=== PATIENT | female | born 1955 | race Caucasian/White ===

== ENCOUNTER → 2017-07-14 | Outpatient (CLI) | payer OTHER | LOC: FIMAGING 07:30 | PROVIDERS: ATTEND Internal Medicine | DX: R10.11 Right upper quadrant pain (principal); R93.2 Abnormal findings on diagnostic imaging of liver and biliary tract ==

== ENCOUNTER → 2017-07-22 | Outpatient (CLI) | payer OTHER ==
[~2017-07-22] MED LIST: GADOBUTROL 10 ML VIAL IVP ONE
== END ==
LOC: FIMAGING 07:04
PROVIDERS: ATTEND Internal Medicine
DX: R10.9 Unspecified abdominal pain (principal); R93.2 Abnormal findings on diagnostic imaging of liver and biliary tract; R93.3 Abnormal findings on diagnostic imaging of other parts of digestive tract; K76.89 Other specified diseases of liver
CPT/HCPCS: A9585

== ENCOUNTER 2017-09-20 20:23 | Emergency (ER) | payer OTHER ==
[2017-09-20 20:36] VITALS: TEMP 98.8
--- NOTE | 2017-09-20 21:32 | EDPHY ---
H & P Smoking Status: Never smoked Time Seen by Provider: 09/20/17 21:29 HPI/ROS: Chief complaint. Back pain HPI. 61-year-old female with 3 day history back pain. 3 days ago she was [place] and had a hard landing. She hurt her back. It has been sore over the last couple days. She had increased pain and spasms today. She saw her physician this afternoon who ordered outpatient x-rays. My review of the x- rays show T12 compression fracture that is moderate but age indeterminate and then another compression fracture this minor of L3. She does have a history of low back pain but there were no previous x-rays apparently for comparison so the acuity is not known. She has no radiation to legs. No bowel or bladder symptoms. Increased pain with movement ROS Constitutional. no fever/chills, no weakness Eyes. no problems with vision ENT. no sore throat, no nasal drainage Cardiovascular. no chest pain Respiratory. no shortness of breath, no cough Abdominal. no abdominal pain, no nausea/vomiting, no diarrhea . no problems urinating MS. Low mid back pain Skin. no rash Lymph. no swollen glands Neuro. no headache, no dizziness, no difficulty walking or with speech (Kun Villagran) Past Medical/Surgical History: Past medical history is significant for hypertension, dyslipidemia, hypothyroid (Kun Villagran) Social History: , nonsmoker, no alcohol (Kun Villagran) Physical Exam: General Appearance: Alert well-developed female moderate distress vital signs are stable Eyes: Pupils equal and round no pallor or injection. ENT, Mouth: Mucous membranes are moist. Respiratory: There are no retractions, lungs are clear to auscultation. Cardiovascular: Regular rate and rhythm. Gastrointestinal: Abdomen is soft and nontender, no masses, bowel sounds normal. Neurological: Awake and alert, sensory and motor exams grossly normal. Skin: Warm and dry, no rashes. Musculoskeletal: Neck is supple nontender. Patient is tender over T12 and through the lumbar spine. No surface swelling or trauma Extremities symmetrical, full range of motion. Psychiatric: Patient is oriented X 3, there is no agitation. (Kun Villagran) Constitutional: Initial Vital Signs Temperature (C) 37.1 C 09/20/17 20:33 Heart Rate 93 09/20/17 20:33 Respiratory Rate 18 09/20/17 20:33 Blood Pressure 143/75 H 09/20/17 20:33 O2 Sat (%) 96 09/20/17 20:33 O2 Delivery Mode Nasal Cannula O2 (L/minute) 3 Allergies/Adverse Reactions: No Known Allergies Allergy (Verified 05/18/16 14:41) Home Medications: Medication Instructions Recorded Levothyroxine [Synthroid 137 mcg 137 mcg PO DAILY06 04/30/13 (*)] Losartan/Hctz 50/12.5 [Hyzaar 1 tab PO DAILY 04/30/13 50/12.5MG (*)] Rosuvastatin Calcium [Crestor] 10 mg PO DAILY 04/30/13 Amlodipine Besylate [Norvasc] 5 mg PO DAILY 05/08/16 Multivitamins [Multivitamin (*)] 1 each PO DAILY 05/08/16 [place]-3 Fatty Acids [Fish Oil 1000 1,000 mg PO DAILY 05/08/16 mg (*)] Acetaminophen [Tylenol 325mg (*)] 650 mg PO Q6HRS #0 tab 05/30/16 Aspirin [Aspirin 325 mg (*)] 325 mg PO DAILY #0 tab 05/30/16 Sennosides/Docusate Sodium 1 - 2 tab PO BID #0 tab 05/30/16 [Senokot-S] celeCOXIB [Celebrex (*)] 200 mg PO DAILY #20 cap 05/30/16 oxyCODONE IR [Oxycodone Ir (*)] 5 - 10 mg PO Q3HRS PRN #0 tab 05/30/16 Diazepam [Valium] 5 mg PO Q6PRN PRN #10 tab 09/20/17 oxyCODONE/APAP 5/325 [Percocet 1 tab PO Q4-6PRN PRN #14 tab 09/20/17 5/325] Medical Decision Making - Diagnostics Imaging Results: Imaging Impressions Lumbar Spine CT 09/20/17 21:55 Impression: 1. Mild acute compression fracture of the superior endplate of the T12 vertebral body. 2. Degenerative disk disease at L1-L2 and L5-S1. Results called to Dr. Mina at 11:15 PM. Review of plain x-rays from earlier today showing moderate compression fracture of T12 and minor compression fracture of L3 (Kun Villagran) Procedures: IV normal saline. Dilaudid for pain. Zofran for nausea. Valium for muscle relaxation (Kun Villagran) ED Course/Re-evaluation: Re-evaluation Patient is feeling better. [place] brace is ordered for indication of T12 and L3 compression fracture ( Kun Villagran) 2322: Patient was signed over to me at 11:00 p.m. Shift change to follow up the CT scan of the lumbar spine. The CT scan of the lumbar spine shows an acute T12 compression fracture approximately 15% height loss. Stable. This is called to me by Dr. Toledo. I have updated the patient about these findings. I have ordered a [place] brace. Patient will get to go home. Follow up with Neurosurgery on outpatient basis. She is comfortable this plan. (Michael Ann) Differential Diagnosis: I considered acute fracture versus exacerbation of chronic fractures as the initial x-ray showed age indeterminate. However the patient has had recent trauma and these are likely could acute fractures. She is neurologically intact. No evidence for cord compression or cauda equina syndrome. (Kun Villagran) Care Turn Over: Dr. Mina at 2200 (Kun Villagran) - Data Points Medications Given: Discontinued Medications Diazepam (Valium) 5 mg IVP EDNOW ONE Stop: 09/20/17 21:57 Last Admin: 09/20/17 22:38 Dose: 5 mg Hydromorphone HCl (Dilaudid) 0.5 mg IVP EDNOW ONE Stop: 09/20/17 21:56 Last Admin: 09/20/17 22:18 Dose: 0.5 mg Ondansetron HCl (Zofran) 4 mg IVP EDNOW ONE Stop: 09/20/17 21:56 Last Admin: 09/20/17 22:07 Dose: 4 mg Departure - Departure Disposition: Home, Routine, Self-Care Clinical Impression: Compression fracture of vertebral column Qualifiers: Encounter type: initial encounter Qualified Code(s): M48.50XA - Collapsed vertebra, not elsewhere classified, site unspecified, initial encounter for fracture Condition: Good Instructions: Vertebral Compression Fracture (ED) Additional Instructions: Wear the brace especially when upright and walking during the day. You may be more comfortable sleeping at least initially at night with it. Ibuprofen 600 mg every 6 hr for discomfort. Percocet in addition as needed for discomfort. Valium if needed for muscle spasms. Return for worsening symptoms including leg weakness or bowel or bladder symptoms. Follow-up with Neurosurgery in the next 3-4 days for further evaluation Referrals: DEIDRE ANN [Other] - As per Instructions Karolina Dunn DO [Doctor of Osteopathy] - 5-7 days, call for appt. Prescriptions: Diazepam [Valium] 5 mg PO Q6PRN PRN #10 tab PRN Reason: For Muscle Spasms oxyCODONE/APAP 5/325 [Percocet 5/325] 1 tab PO Q4-6PRN PRN #14 tab PRN Reason: Pain, Moderate
[2017-09-20] MEDS ORDERED: ONDANSETRON 4 MG/2 ML VIAL IVP ONE (21:55)
[2017-09-20] MEDS ORDERED: HYDROmorphONE/DILAUDID 1 MG/ML INJ IVP ONE (21:55)
[2017-09-20] MEDS ORDERED: DIAZEPAM 5 MG/ML 1 ML SYR IVP ONE (21:56)
[2017-09-20] MEDS ORDERED: OXYCODONE/APAP 5/325MG PREPACK#4 BTL TAKEHOME ONE ×2 (23:29→23:31)
[2017-09-20] MEDS ORDERED: DIAZEPAM 5 MG PREPACK#4 BTL TAKEHOME ONE ×2 (23:29→23:30)
[2017-09-21 00:15] VITALS: BP 120/72; PULSE 67; RESP 18; O2SAT 92
== END 2017-09-21 00:15 | disposition home or self-care (01) ==
LOC: EDUNIT#
DX: M48.50XA Collapsed vertebra, not elsewhere classified, site unspecified, initial encounter for fracture (principal); I10 Essential (primary) hypertension; Z79.82 Long term (current) use of aspirin
CPT/HCPCS: 96374; J1170; J2405; J3360

== ENCOUNTER → 2017-09-20 | Outpatient (CLI) | payer OTHER | LOC: CIMAGING 15:55 | PROVIDERS: ATTEND Internal Medicine | DX: M54.9 Dorsalgia, unspecified (principal); M48.54XA Collapsed vertebra, not elsewhere classified, thoracic region, initial encounter for fracture; M48.56XA Collapsed vertebra, not elsewhere classified, lumbar region, initial encounter for fracture; M79.661 Pain in right lower leg; M79.662 Pain in left lower leg; M17.0 Bilateral primary osteoarthritis of knee; M19.072 Primary osteoarthritis, left ankle and foot; V86.92XA Unspecified occupant of snowmobile injured in nontraffic accident, initial encounter | CPT/HCPCS: 72100-PO; 73590-PO ==

== ENCOUNTER → 2017-11-08 | Outpatient (CLI) | payer OTHER | LOC: FIMAGING 09:18 | PROVIDERS: ATTEND Internal Medicine | DX: Z12.31 Encounter for screening mammogram for malignant neoplasm of breast (principal); Z13.820 Encounter for screening for osteoporosis; M48.10 Ankylosing hyperostosis [Forestier], site unspecified; E07.9 Disorder of thyroid, unspecified; Z96.642 Presence of left artificial hip joint ==

== ENCOUNTER → 2018-04-08 | Outpatient (CLI) | payer OTHER | LOC: FIMAGING 14:46 | PROVIDERS: ATTEND Internal Medicine Gastroenterology | DX: K83.9 Disease of biliary tract, unspecified (principal); K86.89 Other specified diseases of pancreas; K76.89 Other specified diseases of liver | CPT/HCPCS: A9585 ==